=== PATIENT | male | born 1955 ===

== ENCOUNTER 2017-10-28 12:05 | Emergency (ER) | payer OTHER ==
[2017-10-28 12:27] VITALS: RESP 18; TEMP 98.1
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
[2017-10-28] MEDS ORDERED: Oxycodone/Acetaminophen 5/325 mg Tab PO STA (14:37)
[2017-10-28 14:43] VITALS: BP 154/92; PULSE 70
[2017-10-28 14:48] LABS: BASO % 0.5 % (0.0-2.0); EOS # 0.2 K/uL (0.0-0.7); EOS % 3.2 % (0.0-4.0); LYMPH # 2.1 K/uL (1.0-4.3); LYMPH % 41.6 % (20.0-40.0); MEAN CELL VOLUME 86.6 fL (80.0-94.0); MEAN CORPUSCULAR HEMOGLOBIN 29.4 pg (27.0-31.0); MONO # 0.8 K/uL (0.0-0.8); MONO % 15.4 % (0.0-10.0); NEUT % 39.3 % (50.0-75.0); NRBC % 0.1 % (0.0-2.0); RBC 5.11 Mil/uL (4.40-5.90); RED CELL DISTRIBUTION WIDTH 13.8 % (11.5-14.5)
[2017-10-28] MEDS ORDERED: Oxycodone/Acetaminophen 5/325 mg Tab ONE (14:49)
[2017-10-28 15:01] LABS: BLOOD UREA NITROGEN 20 mg/dL (9-20); GFR AFRICAN-AMERICAN > 60; GFR NON-AFRICAN AMERICAN > 60
[2017-10-28 15:02] LABS: ALB/GLOB RATIO 1.2 (1.0-2.1); ALBUMIN 4.3 g/dL (3.5-5.0); ALT/SGPT 41 U/L (21-72); AST/SGOT 38 U/L (17-59); CALCIUM 9.5 mg/dl (8.6-10.4)
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
[2017-10-28 15:20] VITALS: O2SAT 98
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
== END 2017-10-28 15:31 | disposition home or self-care (01) ==
LOC: C.ER 12:05
DX: S20.212A Contusion of left front wall of thorax, initial encounter (principal); V49.49XA Driver injured in collision with other motor vehicles in traffic accident, initial encounter; Y92.410 Unspecified street and highway as the place of occurrence of the external cause